=== PATIENT | female | born 1985 | race Caucasian/White ===

== ENCOUNTER 2020-04-24 17:55 | Inpatient (IN) | payer OTHER ==
[~2020-04-24] VITALS: Ht 152.4 cm; Wt 67.6 kg
[2020-04-24] MEDS ORDERED: OXYTOCIN 30 UNITS/LACT RINGERS 500 ML IV ONE (18:00)
[2020-04-24] MEDS ORDERED: METOCLOPRAMIDE HCL 5 MG/ML 2 ML VIAL IVP PRN (18:00)
[2020-04-24] MEDS ORDERED: CITRIC ACID/SODIUM CITRATE 30 ML SOLUTION UDCUP PO PRN (18:00)
[2020-04-24] MEDS ORDERED: LIDOCAINE/PF 1% 30 ML VIAL SQ PRN (18:00)
[2020-04-24] MEDS ORDERED: RINGERS SOLUTION,LACTATED 1,000 ML IV PRN (18:00)
[2020-04-24] MEDS ORDERED: PREN1TAB80 PO (18:02)
[2020-04-24 18:52] VITALS: BP 113/72
[2020-04-24 18:52] LABS: BASOPHILS % (AUTO) 0.4 % (0.0-2.0); EOSINOPHILS % (AUTO) 0.1 % (1.0-6.0); HEMATOCRIT 36.3 % (36-46); HEMOGLOBIN 12.3 g/dL (12.0-16.0); LYMPHOCYTES # (AUTO) 1.4 K/uL (1.0-4.8); LYMPHOCYTES % (AUTO) 13.5 % (22.0-44.0); MEAN CORPUSCULAR HEMOGLOBIN 31.6 pg (26.0-34.0); MEAN CORPUSCULAR HGB CONC 33.8 G/dL (31.0-37.0); MEAN CORPUSCULAR VOLUME 94 fL (80-100); MONOCYTES # (AUTO) 0.5 K/uL (0.1-1.0); MONOCYTES % (AUTO) 5.2 % (2.0-9.0); NEUTROPHILS # (AUTO) 8.2 K/uL (1.8-7.7); NEUTROPHILS % (AUTO) 80.8 % (40.0-70.0); PLATELET COUNT (AUTO) 123 K/uL (150-450); RED BLOOD CELL COUNT(AUTO) 3.88 MIL/uL (4.00-5.20); RED CELL DISTRIBUTION WIDTH 13.3 % (11.5-14.5)
[2020-04-24] MEDS ORDERED: DINOPROSTONE 10 MG VAGINAL SUPPOSITORY VG ONE (19:00)
[2020-04-24] MEDS: RINGERS SOLUTION,LACTATED 1,000 ML IV SCH (19:17)
[2020-04-24 19:36] LABS: COVID AG,FIA SOURCE NASOPHARYNGEAL
[2020-04-24] MEDS ORDERED: ONDANSETRON HCL 4 MG/2 ML VIAL IVP PRN (19:45)
[2020-04-24] MEDS ORDERED: ROPIVACAINE HCL/PF 0.2% 100 ML ED PRN (19:45)
[2020-04-24] MEDS ORDERED: DiphenhydrAMINE HCL 50 MG/ML VIAL IVP PRN (19:45)
[2020-04-24] MEDS ORDERED: NALBUPHINE HCL 10 MG/ML VIAL IVP PRN (19:45)
[2020-04-24] MEDS: OXYGEN THERAPY IH SCH (20:00)
[2020-04-25] MEDS: RINGERS SOLUTION,LACTATED 1,000 ML IV SCH ×3 (01:24→12:39)
[2020-04-25] MEDS: FentaNYL CITRATE PF 100 MCG/2 ML VIAL IVP PRN ×3 (01:34→05:29)
[2020-04-25] MEDS ORDERED: MISOPROSTOL 50 MCG TABLET PO SCH (08:00)
[2020-04-25] MEDS: OXYGEN THERAPY IH SCH ×2 (08:00→20:00)
[2020-04-25] MEDS ORDERED: OXYTOCIN 30 UNITS/LACT RINGERS 500 ML IV PRN (11:45)
[2020-04-25] MEDS ORDERED: ROPIVACAINE HCL/PF 0.2% 100 ML ED ONE (12:17)
[2020-04-25] MEDS ORDERED: LANOLIN 7 GM OINTMENT TP PRN (17:00)
[2020-04-25] MEDS ORDERED: ACETAMINOPHEN/CODEINE 300-30 MG TABLET PO PRN ×2 (17:00)
[2020-04-25] MEDS ORDERED: CeFAZolin 2 GM/DEXTROSE 50 ML IV ONE (18:45)
[2020-04-25] MEDS: GLYCERIN/WITCH HAZEL LEAF 40 PADS JAR TP PRN (19:00)
[2020-04-25] MEDS: BENZOCAINE 20%/MENTHOL 56 GM SPRAY CANISTER TP PRN (19:00)
[2020-04-25] MEDS: IBUPROFEN 800 MG TABLET PO SCH (19:01)
[2020-04-25] MEDS: MAGNESIUM HYDROXIDE SUSPENSION 30 ML UDCUP PO SCH (21:31)
[2020-04-26] MEDS: IBUPROFEN 800 MG TABLET PO SCH ×3 (00:25→12:40)
[2020-04-26] MEDS: MAGNESIUM HYDROXIDE SUSPENSION 30 ML UDCUP PO SCH (08:09)
[2020-04-26] MEDS ORDERED: ACET-784 PO (10:16)
[2020-04-26] MEDS ORDERED: IBUP-2070 PO (10:17)
[2020-04-26] MEDS ORDERED: DOCU-275 PO (10:17)
[2020-04-26] MEDS: BENZOCAINE 20%/MENTHOL 56 GM SPRAY CANISTER TP PRN (12:40)
[2020-04-26] MEDS: GLYCERIN/WITCH HAZEL LEAF 40 PADS JAR TP PRN (12:40)
== END 2020-04-26 17:25 | disposition home or self-care (01) | DRG 807 ==
LOC: 4S 17:55 → PREOBSVTOIN 05-19 18:23
PROVIDERS: ADMIT Obstetrics & Gynecology; ATTEND Obstetrics & Gynecology
PROC: 10E0XZZ Delivery of Products of Conception, External Approach (ICD-10-PCS; principal; 2020-04-25)
PROC: 0KQM0ZZ Repair Perineum Muscle, Open Approach (ICD-10-PCS; 2020-04-25)
PROC: 10907ZC Drainage of Amniotic Fluid, Therapeutic from Products of Conception, Via Natural or Artificial Opening (ICD-10-PCS; 2020-04-25)
PROC: 3E0P7VZ Introduction of Hormone into Female Reproductive, Via Natural or Artificial Opening (ICD-10-PCS; 2020-04-25)
PROC: 3E0R3BZ Introduction of Anesthetic Agent into Spinal Canal, Percutaneous Approach (ICD-10-PCS; 2020-04-25)
PROC: 00HU33Z Insertion of Infusion Device into Spinal Canal, Percutaneous Approach (ICD-10-PCS; 2020-04-25)
DX: O69.1XX0 Labor and delivery complicated by cord around neck, with compression, not applicable or unspecified (principal); Z37.0 Single live birth; O70.1 Second degree perineal laceration during delivery; Z20.822 Contact with and (suspected) exposure to COVID-19; Z3A.39 39 weeks gestation of pregnancy
CPT/HCPCS: 86850; 86900; 86901; 87426; A9575; J0690; J2590; J2795; J3010; J7120